=== PATIENT | male | born 1960 | race American Indian/Alaskan Native ===

== ENCOUNTER 2019-03-17 03:01 | Emergency (ER) | payer OTHER ==
[2019-03-17] MEDS ORDERED: SODIUM CHLORIDE 0.9% 500 ML 500 ML IV ONE (03:32)
[2019-03-17] MEDS ORDERED: METOCLOPRAMIDE 10 MG/2 ML INJ IV ONE (03:32)
[2019-03-17] MEDS ORDERED: diphenhydrAMINE 50 MG/ML VIAL IV ONE (03:32)
[2019-03-17] MEDS ORDERED: methylPREDNISolone Sod Suc 125 MG in SODIUM CHLORIDE 0.9% 100 ML IV STA (03:32)
[2019-03-17] MEDS ORDERED: amLODIPine 5 MG TAB PO ONE (03:32)
[2019-03-17] MEDS ORDERED: MAGNESIUM SULFATE 2 GM/50 ML BAG IV ONE (03:32)
[2019-03-17] MEDS ORDERED: LIDOCAINE (4%) 40 MG/ML TOPICAL SOLN 50 ML BOTTLE TP ONE (03:32)
--- NOTE | 2019-03-17 03:33 | Emergency Department Report ---
ED General Adult HPI - General Chief complaint: High BP Stated complaint: HIGH BP Time Seen by Provider: 03/17/19 03:04 Source: patient, EMS ( EMS documentation not available at time of chart dictation ), RN notes reviewed Mode of arrival: Ambulatory Limitations: No Limitations - History of Present Illness Initial comments: This is a pleasant 59-year-old gentleman. This patient is not known to this provider previously. He reports a history of hypertension, currently taking amlodipine, 10 mg, but has been out of his medication for 6 days, as he forgot to pack it with him as he recently flew here from [place]. He also has a history of aneurysm on the right side, which she believes was treated with a coil, earlier on this year in April. The patient presents to the ER with his complaint of typical headache and hypertension in the context of not having his blood pressure medication. He states the headache is frontal, and midline. The headache is not sudden or thunderclap in nature. The headache is not maximal in intensity. This is not the worse headache of his life. He had a worse headache in November of this year. He believes the headache started at 12:00 PM yesterday, and gradually got worse over a period of 10-11 hours. There is no neck stiffness, loss of vision, chest pain, abdominal pain, shortness of breath or urinary symptoms. He states this kind of headache Is to him frequently when he does not take his blood pressure medication. -: Gradual, hour(s) Location: head Radiation: other Quality: other Consistency: other Improves with: other Worsens with: other Associated Symptoms: other - Related Data Home Medications Medication Instructions Recorded Confirmed Last Taken Aspirin 81 mg PO DAILY 03/17/19 03/17/19 03/16/19 amLODIPine 10 mg PO DAILY 03/17/19 03/17/19 03/11/19 Previous Rx's Medication Instructions Recorded Last Taken Type Acetaminophen [Non-Aspirin Extra 500 mg PO Q6HR PRN #30 tablet 03/17/19 Unknown Rx Strength] Amlodipine Besylate [Norvasc] 10 mg PO QDAY #60 tablet 03/17/19 Unknown Rx Metoclopramide [Reglan] 10 mg PO QID PRN #30 tablet 03/17/19 Unknown Rx Allergies Allergy/AdvReac Type Severity Reaction Status Date / Time lisinopril AdvReac Angioedema Verified 03/17/19 03:32 ED Review of Systems ROS: Stated complaint: HIGH BP Other details as noted in HPI Constitutional: denies: fever Eyes: denies: eye discharge, vision change ENT: denies: congestion Respiratory: denies: wheezing Cardiovascular: denies: chest pain, syncope Gastrointestinal: denies: abdominal pain, nausea Genitourinary: denies: dysuria Musculoskeletal: denies: back pain Skin: denies: lesions Neurological: headache. denies: weakness, numbness, paresthesias, confusion Hematological/Lymphatic: denies: easy bleeding ED Past Medical Hx - Past Medical History Previous Medical History?: Yes Hx Hypertension: Yes Additional medical history: aneurysm - Surgical History Past Surgical History?: Yes Additional Surgical History: Brain x 2 (aneurysm repair) - Social History Smoking Status: Current Every Day Smoker Substance Use Type: Marijuana - Medications Home Medications: Home Medications Medication Instructions Recorded Confirmed Last Taken Type Acetaminophen [Non-Aspirin Extra 500 mg PO Q6HR PRN #30 tablet 03/17/19 Unknown Rx Strength] Amlodipine Besylate [Norvasc] 10 mg PO QDAY #60 tablet 03/17/19 Unknown Rx Aspirin 81 mg PO DAILY 03/17/19 03/17/19 03/16/19 History Metoclopramide [Reglan] 10 mg PO QID PRN #30 tablet 03/17/19 Unknown Rx amLODIPine 10 mg PO DAILY 03/17/19 03/17/19 03/11/19 History ED Physical Exam - General Limitations: No Limitations General appearance: alert, in no apparent distress - Head Head exam: Present: atraumatic, normocephalic - Eye Eye exam: Present: normal appearance, PERRL, EOMI, other (visual acuity intact to finger counting, color perception, reading at a close distance). Absent: nystagmus - ENT ENT exam: Present: normal exam, normal orophraynx, mucous membranes moist, normal external ear exam - Neck Neck exam: Present: normal inspection, full ROM. Absent: tenderness, meningismus - Respiratory Respiratory exam: Present: normal lung sounds bilaterally. Absent: respiratory distress - Cardiovascular Cardiovascular Exam: Present: normal rhythm, bradycardia, normal heart sounds. Absent: tachycardia, irregular rhythm, systolic murmur, diastolic murmur, rubs, gallop - GI/Abdominal GI/Abdominal exam: Present: soft. Absent: distended, tenderness, guarding, rebound, rigid, pulsatile mass - Rectal Rectal exam: Present: deferred - Extremities Exam Extremities exam: Present: normal inspection, full ROM, other (2+ pulses noted in the bilateral upper, lower extremities. There is no long bone tenderness. Musculoskeletal compartments are soft. The pelvis is stable.). Absent: pedal edema, joint swelling, calf tenderness - Back Exam Back exam: Present: normal inspection, full ROM. Absent: tenderness, CVA tenderness (R), CVA tenderness (L), paraspinal tenderness, vertebral tenderness - Neurological Exam Neurological exam: Present: alert (there is no past-pointing. There is normal [id number]. There is negative pronator drift.), oriented X3, normal gait, other (there is no facial droop. The tongue is midline. Extraocular movements are intact bilaterally. Patient speaking in full complete sentences. Shoulder shrug is intact bilaterally. Hearing is grossly intact bilaterally. Visual acuity intact to finger counting and color perception at a close distance. 5/5 strength 4 extremities. Sensation intact to light touch in 4 extremities.). Absent: motor sensory deficit - Psychiatric Psychiatric exam: Present: normal affect, normal mood - Skin Skin exam: Present: warm, dry, intact, normal color. Absent: rash ED Course Vital Signs 03/17/19 03/17/19 03/17/19 03:10 03:30 03:47 Temperature 98.6 F Pulse Rate 47 L 51 L 10 L Respiratory 10 L 15 Rate Blood Pressure 201/91 184/98 O2 Sat by Pulse 100 99 Oximetry - Reevaluation(s) Reevaluation #1: 03/17/19 04:24 Differential diagnosis, including but not limited to: Migraine headache, tension headache, cluster headache, intracranial hemorrhage, hypertension, medication refill Assessment and plan: 59-year-old gentleman presenting with his typical headache associated with hypertension and medication noncompliance, does not endorse any red flag symptoms, such as sudden or thunderclap headache, vomiting, or headache is maximal in intensity. Furthermore, this is not the worse headache of his life. He is afebrile with reassuring vital signs with the exception of improving blood pressure. He has an unremarkable neurologic exam, without meningeal signs. History not consistent with subarachnoid hemorrhage. Non contrast CT scan of the brain, CT angiogram brain pending, screening laboratory studies obtained, and patient will be given headache cocktail, as well as amlodipine. We will reassess once his data points have resulted. Reevaluation #2: 03/17/19 05:15 ct angio head shows expected postoperative findings. Patient in no acute distress, vital signs improved. Repeat neurologic examination unremarkable and unchanged. He can follow-up with an outpatient primary care doctor Reevaluation #3: 03/17/19 05:17 states headache is improved ED Medical Decision Making - Lab Data Result diagrams: 03/17/19 03:48 03/17/19 03:48 Vital Signs 03/17/19 03/17/19 03/17/19 03:10 03:30 03:47 Temperature 98.6 F Pulse Rate 47 L 51 L 10 L Respiratory 10 L 15 Rate Blood Pressure 201/91 184/98 O2 Sat by Pulse 100 99 Oximetry Lab Results 03/17/19 Range/Units 03:48 WBC 6.7 (4.5-11.0) K/mm3 RBC 4.56 (3.65-5.03) M/mm3 Hgb 13.8 (11.8-15.2) gm/dl Hct 39.5 (35.5-45.6) % MCV 87 (84-94) fl MCH 30 (28-32) pg MCHC 35 H (32-34) % RDW 14.8 (13.2-15.2) % Plt Count 260 (140-440) K/mm3 Vital Signs 03/17/19 03/17/19 03/17/19 03:10 03:30 03:47 Temperature 98.6 F Pulse Rate 47 L 51 L 10 L Respiratory 10 L 15 Rate Blood Pressure 201/91 184/98 O2 Sat by Pulse 100 99 Oximetry Lab Results 03/17/19 03/17/19 03/17/19 Range/Units 03:48 03:48 03:48 WBC 6.7 (4.5-11.0) K/mm3 RBC 4.56 (3.65-5.03) M/mm3 Hgb 13.8 (11.8-15.2) gm/dl Hct 39.5 (35.5-45.6) % MCV 87 (84-94) fl MCH 30 (28-32) pg MCHC 35 H (32-34) % RDW 14.8 (13.2-15.2) % Plt Count 260 (140-440) K/mm3 PT 13.2 (12.2-14.9) Sec. INR 1.01 (0.87-1.13) APTT 32.7 (24.2-36.6) Sec. Sodium 144 (137-145) mmol/L Potassium 3.9 (3.6-5.0) mmol/L Chloride 101.5 (98-107) mmol/L Carbon Dioxide 30 (22-30) mmol/L Anion Gap 16 mmol/L BUN 15 (9-20) mg/dL Creatinine 1.4 (0.8-1.5) mg/dL Estimated GFR > 60 ml/min BUN/Creatinine Ratio 11 % Glucose 123 H (75-100) mg/dL Calcium 9.2 (8.4-10.2) mg/dL Magnesium 1.80 (1.7-2.3) mg/dL Total Creatine Kinase 311 H (55-170) units/L - Radiology Data Radiology results: pending, report reviewed, image reviewed Print Report Referring Physician: CARLI MARADIAGA Patient Name: BRUCE OLIVEROS Date of : 1960 Sex: Male Report Date: 2019-03-17 Report Status: [place] [address] Cat Scan Report Signed Patient: BRUCE OLIVEROS MR#: [id number] : 1960 Acct:[id number] Age/Sex: 59 / M ADM Date: 03/17/19 Loc: ED Attending Dr: Jose henley Physician: CARLI MARADIAGA MD Date of Service: 03/17/19 Procedure(s): CT head/brain wo con Accession Number(s): [id number] cc: CARLI MARADIAGA MD CT head/brain wo con INDICATION: HALL HISTORY of aneurysm. TECHNIQUE: All CT scans at this location are performed using the following dose modulation technique: Automated exposure control. CONTRAST: None. COMPARISON: None available. FINDINGS: The ventricular system is appropriate in size and configuration midline shift. Previously coiled right MCA aneurysm with mild adjacent encephalomalacia. Negative for acute stroke, mass or hemorrhage. The bones and imaged portions of the paranasal sinuses are clear. IMPRESSION: 1. Previously coiled right MCA aneurysm with mild adjacent encephalomalacia. 2. No acute abnormality. Signer Name: Osmel Salazar MD Signed: 03/17/2019 4:34 AM Workstation Name: [email or web address] Transcribed By: ES Dictated By: Osmel Salazar MD Electronically Authenticated By: Osmel Salazar MD Signed Date/Time: 03/17/19433 DD/ 9 Critical care attestation.: If time is entered above; I have spent that time in minutes in the direct care of this critically ill patient, excluding procedure time. ED Disposition Clinical Impression: Hypertension, Headache, Medication refill, History of aneurysm Disposition: - TO HOME OR SELFCARE Is pt being admited?: No Does the pt Need Aspirin: No Condition: Good Instructions: Hypertension (ED) Additional Instructions: Do not take metformin medication for the next 2 days, if patient takes his medication. Patient may take the prescribed Tylenol and Reglan medications as needed for headache. Take blood pressure medication as directed. Recommend the patient stopped smoking cigarettes. Follow-up with a primary care doctor within the next month. Drink 4-6 cups of water per day for the next week. Return to emergency room right away with new, worsened, different symptoms, or symptoms not present on the initial emergency room evaluation. Prescriptions: Acetaminophen [Non-Aspirin Extra Strength] 500 mg PO Q6HR PRN #30 tablet PRN Reason: Pain , Severe (7-10) Amlodipine Besylate [Norvasc] 10 mg PO QDAY #60 tablet Metoclopramide [Reglan] 10 mg PO QID PRN #30 tablet PRN Reason: Headache Referrals: [facility] [Provider Group] - 3-5 Days [facility] [Provider Group] - 3-5 Days
[2019-03-17] MEDS ORDERED: methylPREDNISolone Sod Succinate 125 MG/2 ML INJ IV ONE (04:00)
[2019-03-17 04:13] LABS: Hematocrit 39.5 % (35.5-45.6); Hemoglobin 13.8 gm/dl (11.8-15.2); Mean Corpuscular HGB Conc 35 % (32-34); Mean Corpuscular Volume 87 fl (84-94); Platelet Count 260 K/mm3 (140-440); Red Blood Count 4.56 M/mm3 (3.65-5.03); Red Cell Distribution Width 14.8 % (13.2-15.2)
[2019-03-17 04:25] LABS: INR 1.01 (0.87-1.13)
[2019-03-17 04:26] LABS: Partial Thromboplastin Time 32.7 Sec. (24.2-36.6)
[2019-03-17 04:30] LABS: BUN/Creatinine Ratio 11; Blood Urea Nitrogen 15 mg/dL (9-20); Calcium 9.2 mg/dL (8.4-10.2); Hemolysis Index 9
--- NOTE | 2019-03-17 04:39 | Cat Scan Report ---
CT head/brain wo con INDICATION: HALL HISTORY of aneurysm. TECHNIQUE: All CT scans at this location are performed using the following dose modulation technique: Automated exposure control. CONTRAST: None. COMPARISON: None available. FINDINGS: The ventricular system is appropriate in size and configuration midline shift. Previously c oiled right MCA aneurysm with mild adjacent encephalomalacia. Negative for acute stroke, mass or hemo rrhage. The bones and imaged portions of the paranasal sinuses are clear. IMPRESSION: 1. Previously coiled right MCA aneurysm with mild adjacent encephalomalacia. 2. No acute abnormality. Signer Name: Osmel Salazar MD Signed: 03/17/2019 4:34 AM Workstation Name: [id number]
[2019-03-17] MEDS ORDERED: BUTALB/ACETAMINOPHEN/CAFFEINE TAB PO ONE (04:42)
--- NOTE | 2019-03-17 05:06 | Cat Scan Report ---
CTA head with intravenous contrast CLINICAL HISTORY: Headache. Prior endovascular treatment of right MCA aneurysm. TECHNIQUE: 0.625 mm thick contiguous axial scans were obtained from the skull base to the skull vertex during ra pid bolus administration of intravenous contrast material. Multiplanar reconstructions were produced in the coronal and sagittal planes. In addition 3 plane MIP instructions were produced and reviewed f or this report. The axial source images and reconstructed images were reviewed for this report. All CT scans at this location are performed using CT dose reduction for ALARA by means of automated e xposure control. FINDINGS: Patient is status post treatment of a large right MCA bifurcation aneurysm. The conglomeration of ane urysm coils measures about 11 mm in diameter. Beam hardening artifact secondary to aneurysm coils deg rades image quality and limits evaluation of the adjacent M1 and M2 segments of the right middle cere bral artery. There appears to have been endovascular stent deployment performed as part of the aneury sm treatment. Dense radiopaque stent markers are observed in several locations including on the anter ior genu of the cavernous segment of the R ICA, mid M1 segment of the right middle cerebral artery an d proximal M2 segment of the right middle cerebral artery. Actual wire mesh associated with the presu med endovascular stents is not visualized on this study. Correlation with treatment history is advise d. Caliber of the mid and distal M1 segment and proximal A2 segment of the treated right MCA is mildl y dilated along the expected course of the endovascular stent. The status of the aneurysm neck, residual aneurysm lumen (if any) and adjacent M1 segment of the righ t middle cerebral artery cannot be evaluated secondary to beam hardening artifact due to the aneurysm coils. Evaluation of the remainder of the intracranial circulation reveals no additional evidence of aneurys m or other vascular malformation. No indication of large vessel occlusion is demonstrated. There may be stenosis associated with the distal end of the endovascular stent. The junction of the M1 and M2 s egments of the right middle cerebral artery. As described on recent head CT there is evidence of encephalomalacia presumed secondary to infarction adjacent to the dome of the treated aneurysm. A second presumed area of encephalomalacia is observed along the lateral aspect of the frontal horn of the right lateral ventricle in the region of the cor franchesca radiata. IMPRESSION: 1. Status post endovascular treatment of a large right MCA aneurysm with endovascular coils and stent s as described above. 2. Evaluation of the region of the aneurysm coils is limited due to beam hardening artifact. 3. No additional aneurysms are identified. CONTRAST DOSE REPORT: Omnipaque 350: 100 ml administered intravenously. Signer Name: Magno Frias MD Signed: 03/17/2019 5:01 AM Workstation Name: [id number]
[2019-03-17 05:34] VITALS: BP 157/95
== END 2019-03-17 05:36 | disposition home or self-care (01) ==
LOC: ED 03:01
DX: I10 Essential (primary) hypertension (principal); F17.200 Nicotine dependence, unspecified, uncomplicated; F12.10 Cannabis abuse, uncomplicated; Z76.0 Encounter for issue of repeat prescription; Z79.899 Other long term (current) drug therapy; Z88.5 Allergy status to narcotic agent; Z79.82 Long term (current) use of aspirin
CPT/HCPCS: 36415; 70450; 70496; 80048; 82550; 83735; 85027; 85610; 85730; 96365; 96375; 99285; J1200; J2765; J2930; J3475; J7040; Q9967